=== PATIENT | female | born 2000 | race Caucasian/White ===

== ENCOUNTER 2023-05-31 14:15 | Outpatient (REF) | payer BC, SELFPAY ==
[2023-05-31 14:43] LABS: Basophils Absolute Auto 0.08 K/uL (0.00-0.30); Basophils Percent Auto 1.1 % (0.0-3.0); Eosinophils Absolute Auto 0.22 K/uL (0.00-0.50); Hemoglobin* 13.4 gm/dL (12.0-16.0); Immature Granulocytes Abs Auto 0.01 K/uL (0.00-0.30); Immature Granulocytes Pct Auto 0.1 %; Lymphocytes Absolute Auto 2.48 K/uL (0.90-2.90); Lymphocytes Percent Auto 34.1 % (20-44); Mean Corpuscular HGB Conc 31 gm/dL (32-36); Mean Corpuscular Hemoglobin 25 pg (26-34); Mean Corpuscular Volume 81 fL (80-100); Monocytes Percent Auto 5.4 % (0.0-11.0); Neutrophils Absolute Auto 4.09 K/uL (1.7-7.0); Neutrophils Percent Auto 56.3 % (42.0-72.0); RDW Coefficient of Variation % 13.9 % (11.5-15.5); Red Blood Count 5.33 m/uL (4.00-5.20); White Blood Count* 7.27 K/uL (4.50-11.00)
[2023-05-31 14:53] LABS: Albumin* 4.9 g/dL (3.3-5.0)
[2023-05-31 14:54] LABS: Chloride* 108 mmol/L (96-114); Potassium* 4.3 mmol/L (3.6-5.1); Sodium* 141 mmol/L (135-149)
[2023-05-31 14:56] LABS: Amylase* 41 U/L (18-89); Anion Gap 15 mEq/L (7-15); Aspartate Amino Transferase* 14 U/L (12-35); Bilirubin Total* 0.3 mg/dL (0.1-1.5); Blood Urea Nitrogen* 15 mg/dL (5-24); Carbon Dioxide* 18 mmol/L (20-32); Creatinine* 0.8 mg/dL (0.5-1.5); Estimated Glomerular Filt Rate 105 ml/min; Total Protein* 8.1 g/dL (6.0-8.3)
[2023-05-31 14:57] LABS: Alanine Aminotransferase* 12 U/L (4-35); Alkaline Phosphatase* 59 U/L (40-150); Calcium* 9.8 mg/dL (8.4-10.6); Glucose* 94 mg/dL (60-115); Hemoglobin A1C* 5.2 % (0-5.6); Lipase* 114 U/L (23-300)
[2023-05-31 15:18] LABS: Platelet Count* 374 K/uL (140-440); Slide Review Reflex Yes
[2023-05-31 15:19] LABS: Slide Review Acceptable Review (Acceptable)
== END 2023-05-31 14:16 | disposition home or self-care (01) ==
LOC: NPINS 14:15
PROVIDERS: PCP Nurse Practitioner Family; Visit Provider Nurse Practitioner Family
DX: E66.9 Obesity, unspecified (principal); Z68.32 Body mass index [BMI] 32.0-32.9, adult
CPT/HCPCS: 80053; 82150; 83036; 83690; 84443; 85025